=== PATIENT | female | born 1960 | race Asian ===

== ENCOUNTER 2018-10-19 21:55 | Emergency (ER) | payer MEDICAID | END 2018-10-19 23:00 | disposition left against medical advice (07) | LOC: EMS 21:56 | DX: Z53.21 Procedure and treatment not carried out due to patient leaving prior to being seen by health care provider (principal) ==

== ENCOUNTER 2018-12-05 06:08 | Emergency (ER) | payer MEDICAID ==
[~2018-12-05] VITALS: Ht 165.1 cm; Wt 75.0 kg
[2018-12-05] MEDS ORDERED: ALBU8HFA IH (06:18)
[2018-12-05 06:26] LABS: GLUCOSE,POINT OF CARE 371 MG/DL (70-110)
[2018-12-05 07:01] VITALS: BP 112/76
== END 2018-12-05 07:59 | disposition home or self-care (01) ==
LOC: EMS 06:08
DX: H60.91 Unspecified otitis externa, right ear (principal); H66.91 Otitis media, unspecified, right ear; E11.65 Type 2 diabetes mellitus with hyperglycemia

== ENCOUNTER 2020-04-09 13:09 | Emergency (ER) | payer MEDICAID ==
[~2020-04-09] VITALS: Ht 165.1 cm; Wt 59.1 kg
[~2020-04-09 13:09] MED LIST: ALBU8HFA IH
[2020-04-09] MEDS ORDERED: LORazepam 1 MG TABLET PO ONE (15:30)
[2020-04-09 15:32] LABS: BASOPHILS % (AUTO) 0.6 % (0.0-2.0); EOSINOPHILS % (AUTO) 2.7 % (1.0-6.0); HEMATOCRIT 42.2 % (36-46); HEMOGLOBIN 14.3 g/dL (12.0-16.0); LYMPHOCYTES # (AUTO) 2.1 K/uL (1.0-4.8); LYMPHOCYTES % (AUTO) 33.8 % (22.0-44.0); MEAN CORPUSCULAR HGB CONC 33.8 G/dL (31.0-37.0); MEAN CORPUSCULAR VOLUME 92 fL (80-100); MONOCYTES # (AUTO) 0.5 K/uL (0.1-1.0); MONOCYTES % (AUTO) 7.8 % (2.0-9.0); NEUTROPHILS # (AUTO) 3.4 K/uL (1.8-7.7); NEUTROPHILS % (AUTO) 55.1 % (40.0-70.0); PLATELET COUNT (AUTO) 175 K/uL (150-450); RED CELL DISTRIBUTION WIDTH 12.1 % (11.5-14.5)
[2020-04-09 15:45] LABS: CALCIUM, TOTAL 9.1 mg/dL (8.8-10.5); CREATININE 0.98 mg/dL (0.60-1.30); POTASSIUM 4.1 mmol/L (3.5-5.1)
[2020-04-09 15:51] LABS: ALBUMIN 3.2 g/dL (3.4-5.0); BILIRUBIN,TOTAL 0.4 mg/dL (0.1-1.0); TOTAL PROTEIN, SERUM 8.2 g/dL (6.4-8.2)
[2020-04-09 15:52] LABS: COVID AG,FIA SOURCE NASOPHARYNGEAL
[2020-04-09 17:02] LABS: GLUCOSE,POINT OF CARE 229 MG/DL (70-110)
[2020-04-09 17:33] VITALS: BP 148/88
== END 2020-04-09 17:35 | disposition home or self-care (01) ==
LOC: EMS 13:09
DX: R06.02 Shortness of breath (principal); F41.9 Anxiety disorder, unspecified; E11.9 Type 2 diabetes mellitus without complications; I10 Essential (primary) hypertension; Z20.822 Contact with and (suspected) exposure to COVID-19
CPT/HCPCS: 36415; 71045; 80053; 82962; 83880; 84484; 85025; 87426; 93005; 99285; U0003

== ENCOUNTER 2021-05-31 09:09 | Emergency (ER) | payer MEDICAID ==
[~2021-05-31] VITALS: Ht 165.1 cm; Wt 72.7 kg
[2021-05-31 09:32] LABS: GLUCOMETER DEV NAME(LOC) ERT.5; GLUCOSE,POINT OF CARE 173 MG/DL (70-110)
[2021-05-31] MEDS ORDERED: PROPARACAINE HCL 0.5% 15 ML OPHTHALMIC SOLUTION OS ONE (10:00)
[2021-05-31] MEDS ORDERED: FLUORESCEIN SODIUM 1 MG STRIP OS ONE (10:00)
[2021-05-31] MEDS ORDERED: ERYTHROMYCIN 0.5% 3.5 GM TUBE OPHTHALMIC OINTMENT OS ONE (10:30)
[2021-05-31 10:35] VITALS: BP 155/79
== END 2021-05-31 10:47 | disposition home or self-care (01) ==
LOC: EMS 09:12
DX: T15.92XA Foreign body on external eye, part unspecified, left eye, initial encounter (principal); E11.9 Type 2 diabetes mellitus without complications; I10 Essential (primary) hypertension; W45.8XXA Other foreign body or object entering through skin, initial encounter; Y93.89 Activity, other specified; Y92.89 Other specified places as the place of occurrence of the external cause; Y99.8 Other external cause status
CPT/HCPCS: 82962; 99283

== ENCOUNTER 2023-01-20 09:48 | Emergency (ER) | payer MEDICAID ==
[~2023-01-20] VITALS: Ht 165.1 cm; Wt 77.0 kg
[~2023-01-20 09:48] MED LIST changes: +ALBU18HF12 IH; -ALBU8HFA IH
[2023-01-20 10:00] VITALS: TEMP 98.2
[2023-01-20 10:09] LABS: COVID AG,FIA SOURCE NASAL SWAB
[2023-01-20] MEDS ORDERED: BENZ-39 PO (11:01)
[2023-01-20] MEDS ORDERED: AZIT250T9 PO (11:01)
[2023-01-20 11:15] VITALS: BP 135/80; PULSE 80; RESP 12
[2023-01-20 11:15] LABS: INFLUENZA TYPE A NEGATIVE FOR TYPE A (NEGATIVE); INFLUENZA TYPE B NEGATIVE FOR TYPE B (NEGATIVE)
[2023-01-20 11:17] LABS: SARS-COV2 (COVID) ANTIGEN,FIA Positive (Negative)
[2023-01-20] MEDS ORDERED: NIRM1TAB4 PO (11:24)
== END 2023-01-20 11:30 | disposition home or self-care (01) ==
LOC: EMS 09:48
DX: U07.1 COVID-19 (principal); E11.9 Type 2 diabetes mellitus without complications; I10 Essential (primary) hypertension; Z98.890 Other specified postprocedural states
CPT/HCPCS: 71045; 87804; 99284

== ENCOUNTER 2023-10-18 08:15 | Emergency (ER) | payer MEDICAID ==
[~2023-10-18] VITALS: Ht 167.6 cm; Wt 68.2 kg
[~2023-10-18 08:15] MED LIST changes: +BENZ-39 PO; +NIRM1TAB4 PO
[2023-10-18 08:17] VITALS: TEMP 98
[2023-10-18] MEDS ORDERED: htn med PO (08:23)
[2023-10-18] MEDS ORDERED: METF-1211 PO (08:23)
[2023-10-18] MEDS: CloNIDine HCL 0.1 MG TABLET PO ONE (08:37)
[2023-10-18] MEDS: AmLODIPine BESYLATE 5 MG TABLET PO ONE (08:37)
[2023-10-18 08:40] LABS: APPEARANCE,URINE HAZY (CLEAR); BILIRUBIN,URINE NEGATIVE (NEGATIVE); COLOR,URINE LIGHT YELLOW (YELLOW); GLUCOSE, URINE (UA) 70-100 mg/dL (NEGATIVE); KETONES,URINE NEGATIVE (NEGATIVE); LEUKOCYTE ESTERASE ,URINE TRACE (NEGATIVE); NITRATE,URINE POSITIVE (NEGATIVE); OCCULT BLOOD,URINE MODERATE (NEGATIVE); PH,URINE 6.5 (5.0-8.0); PROTEIN,URINE >600,SEE CONFIRM mg/dL (NEGATIVE); SPECIFIC GRAVITIY, URINE 1.017 (1.003-1.030); UROBILINOGEN,URINE <=1.0 mg/dL (<=1.0)
[2023-10-18 08:51] LABS: BACTERIA,URINE Many /HPF (None Seen); SQUAMOUS EPITHELIAL CELL,UR Few /LPF (None Seen); SULFOSALICYLIC ACID,URINE 3+ (Negative)
[2023-10-18 09:01] LABS: BASOPHILS % (AUTO) 1.2 % (0.0-2.0); EOSINOPHILS % (AUTO) 4.5 % (1.0-6.0); HEMOGLOBIN 12.6 g/dL (12.0-16.0); LYMPHOCYTES # (AUTO) 2.4 K/uL (1.0-4.8); LYMPHOCYTES % (AUTO) 30.6 % (22.0-44.0); MEAN CORPUSCULAR HEMOGLOBIN 31.2 pg (26.0-34.0); MEAN CORPUSCULAR HGB CONC 34.1 G/dL (31.0-37.0); MEAN CORPUSCULAR VOLUME 92 fL (80-100); MONOCYTES # (AUTO) 0.4 K/uL (0.1-1.0); MONOCYTES % (AUTO) 5.4 % (2.0-9.0); NEUTROPHILS # (AUTO) 4.5 K/uL (1.8-7.7); NEUTROPHILS % (AUTO) 58.3 % (40.0-70.0); PLATELET COUNT (AUTO) 234 K/uL (150-450); RED BLOOD CELL COUNT(AUTO) 4.04 MIL/uL (4.00-5.20); RED CELL DISTRIBUTION WIDTH 12.4 % (11.5-14.5); WHITE BLOOD COUNT (AUTO) 7.8 K/uL (4.5-11.0)
[2023-10-18 09:05] LABS: CALCIUM, TOTAL 8.4 mg/dL (8.8-10.5); CREATININE 1.68 mg/dL (0.60-1.30); POTASSIUM 3.7 mmol/L (3.5-5.1)
[2023-10-18] MEDS: SODIUM CHLORIDE 0.9% 1,000 ML IV ONE (10:07)
[2023-10-18] MEDS: CefTRIAXone 1 GM/DEXTROSE 50 ML IV ONE (10:21)
[2023-10-18] MEDS ORDERED: CEPH-558 PO (10:39)
[2023-10-18] MEDS ORDERED: METF-81 PO (10:39)
[2023-10-18] MEDS ORDERED: AMLO-257 PO (10:39)
[2023-10-18 11:19] VITALS: BP 164/74; PULSE 79; RESP 16
== END 2023-10-18 11:44 | disposition home or self-care (01) ==
LOC: EMS 08:15
DX: N39.0 Urinary tract infection, site not specified (principal); I10 Essential (primary) hypertension; E11.65 Type 2 diabetes mellitus with hyperglycemia; E11.21 Type 2 diabetes mellitus with diabetic nephropathy; Z98.890 Other specified postprocedural states
CPT/HCPCS: 99285; 96365; 71045; 80048; 81001; 82962; 83036; 85025; 36415; 87086; 87186; 93005; J0696; 81002

== ENCOUNTER 2023-10-31 08:32 | Emergency (ER) | payer MEDICAID ==
[~2023-10-31] VITALS: Ht 165.1 cm; Wt 68.2 kg
[~2023-10-31 08:32] MED LIST changes: -ALBU18HF12 IH; +AMLO-257 PO; -BENZ-39 PO; +CEPH-558 PO; +METF-1211 PO; +METF-81 PO; -NIRM1TAB4 PO; +htn med PO
[2023-10-31 08:37] VITALS: TEMP 98.7
[2023-10-31] MEDS ORDERED: AMLO5TAB66 PO (08:40)
[2023-10-31 09:05] LABS: GLUCOMETER DEV NAME(LOC) ER.7; GLUCOSE,POINT OF CARE 277 MG/DL (70-110)
[2023-10-31 09:29] LABS: HEMATOCRIT 38.7 % (36-46); HEMOGLOBIN 12.8 g/dL (12.0-16.0); LYMPHOCYTES # (AUTO) 1.8 K/uL (1.0-4.8); LYMPHOCYTES % (AUTO) 32.2 % (22.0-44.0); MEAN CORPUSCULAR HEMOGLOBIN 30.8 pg (26.0-34.0); MEAN CORPUSCULAR VOLUME 93 fL (80-100); MONOCYTES # (AUTO) 0.4 K/uL (0.1-1.0); MONOCYTES % (AUTO) 6.5 % (2.0-9.0); NEUTROPHILS # (AUTO) 3.2 K/uL (1.8-7.7); NEUTROPHILS % (AUTO) 56.3 % (40.0-70.0); PLATELET COUNT (AUTO) 202 K/uL (150-450); RED BLOOD CELL COUNT(AUTO) 4.15 MIL/uL (4.00-5.20); RED CELL DISTRIBUTION WIDTH 12.9 % (11.5-14.5); WHITE BLOOD COUNT (AUTO) 5.7 K/uL (4.5-11.0)
[2023-10-31 09:35] LABS: CALCIUM, TOTAL 8.7 mg/dL (8.8-10.5); CREATININE 1.68 mg/dL (0.60-1.30)
[2023-10-31 09:37] LABS: APPEARANCE,URINE HAZY (CLEAR); BILIRUBIN,URINE NEGATIVE (NEGATIVE); COLOR,URINE YELLOW (YELLOW); GLUCOSE, URINE (UA) NEGATIVE (NEGATIVE); KETONES,URINE NEGATIVE (NEGATIVE); LEUKOCYTE ESTERASE ,URINE TRACE (NEGATIVE); NITRATE,URINE NEGATIVE (NEGATIVE); OCCULT BLOOD,URINE NEGATIVE (NEGATIVE); PROTEIN,URINE >600,SEE CONFIRM mg/dL (NEGATIVE); SPECIFIC GRAVITIY, URINE 1.021 (1.003-1.030); UROBILINOGEN,URINE <=1.0 mg/dL (<=1.0)
[2023-10-31 09:42] LABS: TROPONIN I-HIGH SENSITIVITY 9 ng/L (<51)
[2023-10-31 09:54] LABS: SULFOSALICYLIC ACID,URINE 4+ (Negative)
[2023-10-31 09:56] LABS: TRIPLE PHOSPHATE CRYSTAL,UR Moderate /LPF (None Seen)
[2023-10-31 09:57] LABS: BACTERIA,URINE Moderate /HPF (None Seen); RBC,URINE None Seen /HPF (0-2)
[2023-10-31] MEDS ORDERED: NITR-75 PO (10:01)
[2023-10-31 10:13] VITALS: BP 146/84; PULSE 72; RESP 16; O2SAT 96
== END 2023-10-31 10:21 | disposition home or self-care (01) ==
LOC: EMS 08:32
DX: R07.9 Chest pain, unspecified (principal); N39.0 Urinary tract infection, site not specified; R42 Dizziness and giddiness; R30.0 Dysuria; E11.9 Type 2 diabetes mellitus without complications; I10 Essential (primary) hypertension
CPT/HCPCS: 71045; 80048; 81001; 81002; 82962; 84484; 85025; 87086; 87186; 93005; 99285; 36415-L1; 36415-TC

== ENCOUNTER 2023-11-25 10:18 | Emergency (ER) | payer MEDICAID ==
[~2023-11-25] VITALS: Ht 165.1 cm; Wt 68.1 kg
[~2023-11-25 10:18] MED LIST changes: -AMLO-257 PO; +AMLO5TAB66 PO; -CEPH-558 PO; -METF-1211 PO; +NITR-75 PO; -htn med PO
[2023-11-25 10:43] VITALS: TEMP 97.8
[2023-11-25 10:55] LABS: GLUCOMETER DEV NAME(LOC) ER.7; GLUCOSE,POINT OF CARE 273 MG/DL (70-110)
[2023-11-25 13:11] LABS: APPEARANCE,URINE HAZY (CLEAR); BILIRUBIN,URINE NEGATIVE (NEGATIVE); COLOR,URINE YELLOW (YELLOW); GLUCOSE, URINE (UA) >=1000 mg/dL (NEGATIVE); KETONES,URINE NEGATIVE (NEGATIVE); LEUKOCYTE ESTERASE ,URINE LARGE (NEGATIVE); NITRATE,URINE NEGATIVE (NEGATIVE); OCCULT BLOOD,URINE LARGE (NEGATIVE); PH,URINE 6.5 (5.0-8.0); PROTEIN,URINE >600,SEE CONFIRM mg/dL (NEGATIVE); SPECIFIC GRAVITIY, URINE 1.018 (1.003-1.030); UROBILINOGEN,URINE <=1.0 mg/dL (<=1.0)
[2023-11-25 13:14] LABS: BASOPHILS % (AUTO) 0.7 % (0.0-2.0); EOSINOPHILS % (AUTO) 2.2 % (1.0-6.0); HEMATOCRIT 35.2 % (36-46); HEMOGLOBIN 11.9 g/dL (12.0-16.0); LYMPHOCYTES # (AUTO) 2.3 K/uL (1.0-4.8); LYMPHOCYTES % (AUTO) 22.7 % (22.0-44.0); MEAN CORPUSCULAR HEMOGLOBIN 31.3 pg (26.0-34.0); MEAN CORPUSCULAR HGB CONC 33.7 G/dL (31.0-37.0); MEAN CORPUSCULAR VOLUME 93 fL (80-100); MONOCYTES # (AUTO) 0.7 K/uL (0.1-1.0); MONOCYTES % (AUTO) 6.3 % (2.0-9.0); NEUTROPHILS % (AUTO) 68.1 % (40.0-70.0); PLATELET COUNT (AUTO) 180 K/uL (150-450); RED BLOOD CELL COUNT(AUTO) 3.79 MIL/uL (4.00-5.20); RED CELL DISTRIBUTION WIDTH 12.8 % (11.5-14.5); WHITE BLOOD COUNT (AUTO) 10.3 K/uL (4.5-11.0)
[2023-11-25 13:20] LABS: CALCIUM, TOTAL 8.4 mg/dL (8.8-10.5); CREATININE 1.5 mg/dL (0.60-1.30); POTASSIUM 4.3 mmol/L (3.5-5.1)
[2023-11-25] MEDS: PHENAZOPYRIDINE HCL 100 MG TABLET PO ONE (13:24)
[2023-11-25] MEDS: ACETAMINOPHEN 500 MG TABLET PO ONE (13:24)
[2023-11-25 13:25] LABS: BACTERIA,URINE Few /HPF (None Seen); RBC,URINE 26-50 /HPF (0-2); SQUAMOUS EPITHELIAL CELL,UR Few /LPF (None Seen); SULFOSALICYLIC ACID,URINE 3+ (Negative); WBC,URINE 51-100 /HPF (0-5)
[2023-11-25 13:45] VITALS: BP 132/87; PULSE 81; RESP 16; O2SAT 97
[2023-11-25] MEDS ORDERED: CEPH-558 PO (13:57)
[2023-11-25] MEDS ORDERED: PHEN-846 PO (13:58)
== END 2023-11-25 14:30 | disposition home or self-care (01) ==
LOC: EMS 10:29
DX: N39.0 Urinary tract infection, site not specified (principal); E11.65 Type 2 diabetes mellitus with hyperglycemia; I10 Essential (primary) hypertension; Z85.42 Personal history of malignant neoplasm of other parts of uterus; Z98.890 Other specified postprocedural states
CPT/HCPCS: 80048; 81001; 81002; 82962; 85025; 87086; 87186; 99283

== ENCOUNTER 2024-03-26 18:20 | Emergency (ER) | payer SELFPAY ==
[~2024-03-26] VITALS: Ht 162.6 cm; Wt 70.5 kg
[~2024-03-26 18:20] MED LIST changes: +CEPH-558 PO; -NITR-75 PO; +PHEN-846 PO
[2024-03-26 18:45] VITALS: TEMP 98.8
[2024-03-26 18:51] LABS: COVID AG,FIA SOURCE NASAL SWAB
[2024-03-26 19:09] LABS: SARS-COV2 (COVID) ANTIGEN,FIA Negative (Negative)
[2024-03-26 19:10] LABS: INFLUENZA TYPE B NEGATIVE FOR TYPE B (NEGATIVE)
[2024-03-26 19:11] LABS: INFLUENZA TYPE A POSITIVE FOR TYPE A (NEGATIVE)
[2024-03-26 19:38] LABS: BASOPHILS % (AUTO) 0.3 % (0.0-2.0); EOSINOPHILS % (AUTO) 0 % (1.0-6.0); HEMOGLOBIN 14.1 g/dL (12.0-16.0); LYMPHOCYTES # (AUTO) 0.6 K/uL (1.0-4.8); LYMPHOCYTES % (AUTO) 9.4 % (22.0-44.0); MEAN CORPUSCULAR HGB CONC 34.4 G/dL (31.0-37.0); MEAN CORPUSCULAR VOLUME 90 fL (80-100); MONOCYTES # (AUTO) 0.6 K/uL (0.1-1.0); MONOCYTES % (AUTO) 10.3 % (2.0-9.0); NEUTROPHILS # (AUTO) 4.8 K/uL (1.8-7.7); PLATELET COUNT (AUTO) 120 K/uL (150-450); RED BLOOD CELL COUNT(AUTO) 4.55 MIL/uL (4.00-5.20); RED CELL DISTRIBUTION WIDTH 12.5 % (11.5-14.5)
[2024-03-26 19:44] LABS: ANION GAP 8 mmol/L (8-16); CARBON DIOXIDE 25 mmol/L (22-29); CHLORIDE 98 mmol/L (98-107); CREATININE 2.04 mg/dL (0.60-1.30); GLOMERULAR FILTR. RATE CALC 25 mL/min (>60); GLUCOSE,RANDOM 190 mg/dL (70-110); POTASSIUM 3.9 mmol/L (3.5-5.1); SODIUM SERUM 131 mmol/L (136-145); UREA NITROGEN, BLOOD 31 mg/dL (7-18)
[2024-03-26 19:54] LABS: TROPONIN I-HIGH SENSITIVITY 49 ng/L (<51)
[2024-03-26] MEDS: SODIUM CHLORIDE 0.9% 1,000 ML IV ONE (21:15)
[2024-03-26] MEDS: ACETAMINOPHEN 500 MG TABLET PO ONE (21:15)
[2024-03-26 21:21] VITALS: BP 161/75; PULSE 75; RESP 20; O2SAT 94
[2024-03-26] MEDS ORDERED: ONDA-104 PO (21:21)
== END 2024-03-26 22:32 | disposition home or self-care (01) ==
LOC: EMS 18:20
DX: J10.1 Influenza due to other identified influenza virus with other respiratory manifestations (principal); E11.9 Type 2 diabetes mellitus without complications; I10 Essential (primary) hypertension; Z85.42 Personal history of malignant neoplasm of other parts of uterus; Z98.890 Other specified postprocedural states; Z20.822 Contact with and (suspected) exposure to COVID-19
CPT/HCPCS: 99284; 96360; 87426; 80048; 82962; 84484; 85025; 87804; 36415; 93005; J7030

== ENCOUNTER 2024-03-31 11:46 | Emergency (ER) | payer SELFPAY ==
[~2024-03-31] VITALS: Ht 160 cm; Wt 61.4 kg
[~2024-03-31 11:46] MED LIST changes: +ONDA-104 PO
[2024-03-31 12:05] VITALS: TEMP 98.7
[2024-03-31 12:39] LABS: BASOPHILS % (AUTO) 0.4 % (0.0-2.0); EOSINOPHILS % (AUTO) 0.2 % (1.0-6.0); HEMATOCRIT 40.1 % (36-46); HEMOGLOBIN 13.2 g/dL (12.0-16.0); LYMPHOCYTES # (AUTO) 1.3 K/uL (1.0-4.8); LYMPHOCYTES % (AUTO) 11.2 % (22.0-44.0); MEAN CORPUSCULAR HEMOGLOBIN 29.7 pg (26.0-34.0); MEAN CORPUSCULAR VOLUME 90 fL (80-100); MONOCYTES # (AUTO) 0.8 K/uL (0.1-1.0); MONOCYTES % (AUTO) 7.3 % (2.0-9.0); NEUTROPHILS # (AUTO) 9.2 K/uL (1.8-7.7); NEUTROPHILS % (AUTO) 80.9 % (40.0-70.0); PLATELET COUNT (AUTO) 286 K/uL (150-450); RED BLOOD CELL COUNT(AUTO) 4.46 MIL/uL (4.00-5.20); RED CELL DISTRIBUTION WIDTH 12.6 % (11.5-14.5); WHITE BLOOD COUNT (AUTO) 11.4 K/uL (4.5-11.0)
[2024-03-31 12:45] LABS: COVID AG,FIA SOURCE NASAL SWAB
[2024-03-31 12:52] LABS: CREATININE 1.87 mg/dL (0.60-1.30); POTASSIUM 3.5 mmol/L (3.5-5.1)
[2024-03-31 12:55] LABS: ALBUMIN 1.6 g/dL (3.4-5.0); BILIRUBIN,DIRECT 0.1 mg/dL (0.00-0.20); BILIRUBIN,TOTAL 0.4 mg/dL (0.1-1.0); TOTAL PROTEIN, SERUM 7.6 g/dL (6.4-8.2)
[2024-03-31 13:15] LABS: INFLUENZA TYPE A NEGATIVE FOR TYPE A (NEGATIVE); INFLUENZA TYPE B NEGATIVE FOR TYPE B (NEGATIVE); SARS-COV2 (COVID) ANTIGEN,FIA Negative (Negative)
[2024-03-31] MEDS: ACETAMINOPHEN 325 MG TABLET PO ONE (13:51)
[2024-03-31] MEDS: ONDANSETRON 4 MG TABLET PO ONE (13:52)
[2024-03-31 14:45] VITALS: BP 140/89; PULSE 90; RESP 18; O2SAT 99
[2024-03-31] MEDS ORDERED: IBUP-1492 PO (14:47)
[2024-03-31] MEDS ORDERED: AZIT-164 PO (14:47)
[2024-03-31] MEDS ORDERED: ACET-2247 PO (14:47)
[2024-03-31] MEDS: AZITHROMYCIN 500 MG TABLET PO ONE (14:55)
== END 2024-03-31 15:00 | disposition home or self-care (01) ==
LOC: EMS 11:59
DX: R42 Dizziness and giddiness (principal); R11.0 Nausea; J18.9 Pneumonia, unspecified organism; E11.9 Type 2 diabetes mellitus without complications; I10 Essential (primary) hypertension; Z85.42 Personal history of malignant neoplasm of other parts of uterus; Z20.822 Contact with and (suspected) exposure to COVID-19
CPT/HCPCS: 99284; 71045; 87426; 80048; 80076; 83690; 83735; 85025; 87804; 36415; J0456; Q0162